=== PATIENT | female | born 1975 | race Caucasian/White ===

== ENCOUNTER 2023-06-27 13:42 | Emergency (ER) | payer OTHER, BC, SELFPAY ==
[2023-06-27] VITALS (17 sets, daily range): BP systolic 90–113; BP diastolic 50–73
[2023-06-27 14:18] LABS: % Basophils 0.3 % (0-2); % Eosinophils 2.5 % (0-6); % Immature Granulocytes 0.3 % (0-0.5); % Lymphocytes 25.8 % (20.5-51.1); % Monocytes 6.8 % (1.7-9.3); % Neutrophils 64.3 % (42.2-75.2); Absolute Eosinophils 0.2 10^3/uL (0-0.7); Absolute Lymphocytes 1.9 10^3/uL (1.2-3.4); Absolute Monocytes 0.5 10^3/uL (0.1-0.6); Absolute Neutrophils 4.6 10^3/uL (1.4-6.5); Mean Corpuscular Hgb 28.3 pg (27.0-31.0); Mean Corpuscular Volume 97.8 fL (81.0-99.0); Mean Platelet Volume 10.6 fL (7.4-10.4); Nucleated Red Blood Cells % 0.4 %; Platelet Count 237 10^3/uL (130-400); Red Cell Dist. Width 20.5 % (11.5-14.5); White Blood Cell Count 7.2 10^3/uL (4.8-10.8)
[2023-06-27 14:23] LABS: Hematocrit 17.6 % (37.0-47.0); Hemoglobin 5.1 g/dL (12.0-16.0)
[2023-06-27 14:31] LABS: ALT (SGPT) 18 U/L (0-35); AST (SGOT) 23 U/L (14-36); Albumin 3.4 g/dl (3.5-5.0); Alkaline Phosphatase 61 U/L (38-126); Blood Urea Nitrogen 11 mg/dl (7-17); Calcium 8.5 mg/dl (8.4-10.2); Carbon Dioxide 26 mmol/L (22-30); Chloride 108 mmol/L (98-107); Glucose 107 mg/dl (70-99); Potassium 3.8 mmol/L (3.5-5.1); Sodium 135 mmol/L (135-145); Total Bilirubin 0.3 mg/dl (0.2-1.3); Total Protein 5.9 g/dl (6.3-8.2); eGFR > 60.00
--- NOTE | 2023-06-27 17:34 | ED.GENMED ---
History of Present Illness
General
Chief Complaint: Abnormal Lab Value
Source: patient
Time Seen by Provider: 06/27/23 15:49
Travel History
Have you had any contact with someone who has COVID-19?: No
Do you have any symptoms of coronavirus? Fever > 100 degrees, chills, cough, shortness of breath, sore throat, loss of taste or smell, muscle aches, or headache?: No
History of Present Illness
History of Present Illness:
48-year-old female presenting to the emergency department for evaluation at the request of her EMISSION SPECIALIST after she had outpatient labs done on Tuesday which resulted with a hemoglobin of less than 6 related to her vaginal bleeding. States that since
April she has had daily vaginal bleeding which varies from very heavy to light spotting. Patient states that over the last week or so she has gotten progressively more fatigued and exertionally dyspneic. She denies any history of similar. Denies
any melena or hematochezia. She does take a daily iron supplement. She denies any use of anticoagulants. She attempted a medication for vaginal bleeding but states this caused her to have severe nausea/vomiting/diarrhea. Her EMISSION SPECIALIST sent her a new
medication to help control the bleeding today but she has yet to pick this up from the pharmacy. Patient has no other concerns.
Past History
Past History
ED Past Medical History: None
ED Past Surgical History: None
Social History
Tobacco: Non-smoker
Alcohol: Occasional
Drug: None
Personal:
Living: with family
Phy Exam
Physical Exam
Physical Exam:
GENERAL: Alert , in no apparent distress
EYE: conjunctiva clear
NECK: Supple
ENT: o/p clr, mmm.
CARDIAC: Regular rate and rhythm
LUNGS: Clear breath sounds bilaterally, no acute respiratory distress, no wheezes/rales/rhonchi
NEUROLOGICAL: Alert and oriented
SKIN: Warm and dry, skin intact.
MUSCULOSKELETAL: well perfused.
PSYCH: Normal and appropriate interaction.
Scores
Heart Failure Risk
Heart Failure Risk Score: Not Applicable
Heart Score for Chest Pain Patients
STEMI patient?: Not applicable
Withdrawal Assessment of Alcohol
Withdrawal Assessment Completed?: Not applicable
Course
Orders/Labs/Results
Orders:
Orders
06/27/23 14:02
EKG [Electrocardiogram (*1)] Urgent
Reason for Study: Abdominal Pain
06/27/23 14:03
EKG- Treatment ONCE
06/27/23 14:06
Type+Screen Urgent
CMP [Comprehensive Metabolic Panel] Urgent
Complete Blood Count/With Diff Urgent
06/27/23 16:12
Blood Bank Products [* Blood Bank Products] Urgent
Blood Bank Products: *Packed RBC Leuko(PRBC's)
Quantity: 2
Transfuse Today: Yes
Reason: Anemia
Abnormal Lab Results
06/27/23
14:06
RBC 1.80 L 10^6/uL
(4.20-5.40)
Hgb 5.1 L* g/dL
(12.0-16.0)
Hct 17.6 L* %
(37.0-47.0)
MCHC 29.0 L g/dL
(33.0-37.0)
RDW 20.5 H %
(11.5-14.5)
MPV 10.6 H fL
(7.4-10.4)
Chloride 108 H mmol/L
(98-107)
Creatinine 0.5 L mg/dL
(0.6-1.0)
Glucose 107 H mg/dl
(70-99)
Total Protein 5.9 L g/dl
(6.3-8.2)
Albumin 3.4 L g/dl
(3.5-5.0)
Crossmatch IS Only See Detail
06/27/23 14:06
06/27/23 14:06
Vital Signs
Initial and Last Documented VS:
Initial Vital Signs
Temp Pulse Resp BP Pulse Ox
98.2 F 97 16 113/67 98
06/27/23 13:54 06/27/23 13:54 06/27/23 13:54 06/27/23 13:54 06/27/23 13:54
Last Documented Vital Signs
Temp Pulse Resp BP Pulse Ox
97.9 F 102 18 96/66 100
06/27/23 23:01 06/27/23 23:01 06/27/23 23:01 06/27/23 23:01 06/27/23 23:01
MDM/Problems Addressed
Differential Diagnosis Includes:
Dysfunctional uterine bleeding, fibroids, perimenopausal state, malignancy, anemia
MDM/Problems Addressed:
48-year-old female presenting the emergency department for evaluation of anemia found on outpatient blood work secondary to her dysfunctional uterine bleeding. Hemoglobin found here of 5.1. Due to patient's symptoms combined with her current
hemoglobin I recommended patient be admitted for continuous transfusion however patient states she has no intention of staying in the hospital and wishes to be discharged home. Will transfuse 2 units of packed red blood cells here in the emergency.
Patient to continue taking her iron supplements and advise she increase iron in her diet. She will go to the pharmacy to olive picker her progesterone tablet that was sent to her by her INBOUND TELEMARKETER today and she will continue to follow-up with her EMISSION SPECIALIST.
Patient was advised she may return to the ER at any time if she so chooses or her symptoms worsen. She will otherwise be stable for discharge home following completion of her transfusion
*Pulse Oximetry
Patient hypoxic: no
*Critical Care Note
Total Time (30-74mins, 75-104mins- exclusive of procedures): Not Applicable
Comment
Comment:
8:30 PM: On multiple reevaluations patient has remained comfortable and hemodynamically stable. She is getting ready for her second transfusion currently. Patient will be signed out to Fang Fenton PA-C. Patient will be stable for discharge
home following second transfusion. She will follow-up closely with her EMISSION SPECIALIST and already has medication sent to her pharmacy for her to start to for further bleeding control.
ED Attending Note
-
Portions of this chart may have been created with voice recognition software.� Occasional wrong word or��sound alike� substitutions may have occurred due to the inherent limitations of voice recognition software.
Discharge Plan
Departure
Patient Disposition: Home (Routine Discharge)
Date of Disposition: 06/27/23
Time of Disposition: 23:04
Patient with high blood pressure during this ER visit?: No
Discharge Problem:
Anemia, Menorrhagia
Instructions: Heavy Periods (DC)
Referrals:
NONE,* [Family Provider] -
Activity Restrictions/Additional Instructions:
TAKE YOUR MEDICATION PRESCRBIED
YOU RECEIVED 2 UNITS OF BLOOD TODAY
RETURN FOR ANY CONCERNS LIKE PASSING OUT OR SEVERE BLEEDING
Interventions
Interventions:
*Risk Screen - Suicide Last Done: 06/27/23 13:54
*General Assessment Last Done: 06/27/23 13:54
*Neglect/Abuse Screening Last Done: 06/27/23 13:54
ED- Fall Risk Assessment Last Done: 06/27/23 16:40
*Nursing Disposition Last Done: 06/27/23 23:06
Discharge Date and Time
Discharge Date/Time: 06/27/23 23:07
Print Language: TUNISIAN
== END 2023-06-27 23:07 | disposition home or self-care (01) ==
LOC: EMR 13:42
PROVIDERS: Emergency Medicine; EMERGENCY PHYSICIAN Emergency Medicine
DX: D64.9 Anemia, unspecified (principal); N92.0 Excessive and frequent menstruation with regular cycle
CPT/HCPCS: 99285; 36430; 80053; 85025; 86850; 86900; 86901; 86920; 93005; P9016

== ENCOUNTER 2023-07-22 10:34 | Emergency (ER) | payer OTHER, BC, SELFPAY ==
[2023-07-22 10:50] VITALS: BP 106/56
--- NOTE | 2023-07-22 11:07 | ED.GENMED ---
History of Present Illness
General
Chief Complaint: DVT/Possible Blood Clot
Source: patient
Exam Limitations: none
Time Seen by Provider: 07/22/23 11:07
Nursing documentation reviewed up to this point in time: agreed with
Travel History
Have you had any contact with someone who has COVID-19?: No
Do you have any symptoms of coronavirus? Fever > 100 degrees, chills, cough, shortness of breath, sore throat, loss of taste or smell, muscle aches, or headache?: No
History of Present Illness
History of Present Illness:
48-year-old female presents with left calf pain waxing and waning past 10 days. Was on Megace for 2 days for heavy vaginal bleeding on June 27 and . Denies chest pain or shortness of breath.
Past History
Past History
ED Past Medical History: None
ED Past Surgical History: None
Social History
Tobacco: Non-smoker
Alcohol: Occasional
Drug: None
Personal:
Living: with family
Review of Systems
Review of Systems
Allergies reviewed?: Yes
All Other Systems: ROS reviewed and negative except as documented in HPI and ROS
Respiratory: Denies trouble breathing
Cardiac: Denies chest pain
ABD/GI: Denies abdominal pain
Musculoskeletal: Reports other (left calf pain )
Skin: Reports no symptoms
Phy Exam
Physical Exam
Physical Exam:
GENERAL: No acute distress. A&Ox3.
CONSTITUTIONAL: Afebrile.
RESPIRATORY: Regular respirations, nonlabored, lungs clear.
CARDIOVASCULAR: Regular rate and rhythm, no murmurs, no rubs.
GI: Soft, nontender, normal BS
MUSCULOSKELETAL: No swelling, redness or warmth of left calf. No significant tenderness, one local point mid calf which is mildly tender to palpation. Moves with ease. Well perfused.
SKIN: Warm, dry, pink
PSYCH: Normal mood and affect. Well kept, interactive and appropriate
NEUROLOGIC: Awake, alert and oriented. No focal neurological deficits
Course
Orders/Labs/Results
Orders:
Orders
07/22/23 11:08
US Legs, Left [US Periph Venous LOWER Ext LT] Urgent
Comment:
Reason For Exam: pain with movement.
Vital Signs
Initial and Last Documented VS:
Initial Vital Signs
Temp Pulse Resp BP Pulse Ox
98.9 F 89 20 106/56 98
07/22/23 10:50 07/22/23 10:50 07/22/23 10:50 07/22/23 10:50 07/22/23 10:50
Last Documented Vital Signs
Temp Pulse Resp BP Pulse Ox
98.9 F 89 20 106/56 98
07/22/23 10:50 07/22/23 10:50 07/22/23 10:50 07/22/23 10:50 07/22/23 10:50
MDM/Problems Addressed
Differential Diagnosis Includes:
DVT, Muscle strain
MDM/Problems Addressed:
48-year-old female presents with left calf pain waxing and waning past 10 days. Was on Megace for 2 days for heavy vaginal bleeding on June 27 and . Denies chest pain or shortness of breath.
1:00 PM
Radiology report read, ultrasound left lower extremity negative for DVT.
*Critical Care Note
Total Time (30-74mins, 75-104mins- exclusive of procedures): Not Applicable
ED Attending Note
-
Portions of this chart may have been created with voice recognition software.� Occasional wrong word or��sound alike� substitutions may have occurred due to the inherent limitations of voice recognition software.
Discharge Plan
Departure
Patient Disposition: Home (Routine Discharge)
Date of Disposition: 07/22/23
Time of Disposition: 13:11
Patient with high blood pressure during this ER visit?: No
Condition: Good
Discharge Problem:
Pain of left calf
Instructions: Musculoskeletal Pain
Referrals:
NONE,* [Family Provider] -
Activity Restrictions/Additional Instructions:
As we discussed, your ultrasound was negative for a clot.
Interventions
Interventions:
*Risk Screen - Suicide Last Done: 07/22/23 11:09
*General Assessment Last Done: 07/22/23 11:09
*Neglect/Abuse Screening Last Done: 07/22/23 11:09
ED- Fall Risk Assessment Last Done: 07/22/23 11:09
*ED COVID-19 Vaccine History Last Done: 07/22/23 10:52
*Nursing Disposition Last Done: 07/22/23 13:35
ED- Cardiac Assessment Last Done: 07/22/23 11:09
ED- Pulmonary Assessment Last Done: 07/22/23 11:09
ED-Peripheral Vascular Assessment Last Done: 07/22/23 11:09
ED-Skin Assessment Last Done: 07/22/23 11:09
Discharge Date and Time
Discharge Date/Time: 07/22/23 13:35
Print Language: LAO
[2023-07-22 11:09] VITALS: BMI 23.5
== END 2023-07-22 13:35 | disposition home or self-care (01) ==
LOC: EMR 10:34
PROVIDERS: EMERGENCY PHYSICIAN Emergency Medicine
DX: M79.662 Pain in left lower leg (principal)
CPT/HCPCS: 99284; 93971